=== PATIENT | female | born 2000 ===

== ENCOUNTER 2024-01-15 09:31 | Emergency (ER) | payer OTHER, SELFPAY ==
[2024-01-15 09:53] VITALS: BP 106/78; PULSE 88; RESP 16; TEMP 36.8; O2SAT 98; BMI 22.2
--- NOTE | 2024-01-15 14:21 | ED_ITS ---
HPI - General Adult General Chief complaint: Skin/Abscess/Foreign Body Stated complaint: cyst inside mouth Time Seen by Provider: 01/15/24 13:54 Source: patient Mode of arrival: ambulatory Limitations: no limitations History of Present Illness ED Provider: Shanell DOYLE HPI narrative: This is a 23-year-old female presenting to the emergency department with complaints of bump to right lower lip for the past 8 months not going away not resolving or improving. Patient was seen by her dentist, she was told that she had to come here to be evaluated as this could possibly be a cancerous growth. Patient reports that the lump is bothering her because it is getting bigger. She reports she frequently bites on plastic bottle caps on that side and she has not sure if this could be contributing. Patient reports she has been having difficulty when seeing a dentist due to insurance reasons and that is why she decided to come in today. She has requesting a biopsy to see if there is cancer in that region. Patient denies history of cancer, patient smokes marijuana however no tobacco. Denies fevers, chills, night sweats, chest pain, shortness of breath, changes in voice or difficulty swallowing, nausea, vomiting, weight changes. Related Data Previous Rx's ?Medication ?Instructions ?Recorded naproxen 500 mg tablet 500 mg PO BID PRN pain #14 tabs 01/15/24 Allergies Allergy/AdvReac Type Severity Reaction Status Date / Time No Known Allergies Allergy Verified 01/15/24 09:56 Review of Systems Review of Systems: Yes all other systems are reviewed and are negative PMFSH Past Medical History Attestation statement: The following information was validated with the patient. Source: old records reviewed and nursing notes reviewed Social History Social History Advance Directives: No Physical Exam ED Vital Signs: Vital Signs - 24 hr 01/15/24 09:53 Temperature 98.3 F Pulse Rate 88 Respiratory Rate 16 Blood Pressure 106/78 Pulse Oximetry 98 Oxygen Delivery Method Room Air BMI result Body Mass Index 22.2 vss Appearance: Alert.? Oriented X3.? No acute distress.? Head: Normocephalic, atraumatic, no step-offs or deformities Eyes: Pupils equal, round and reactive to light.? ENT: Pharynx normal.?+ firm area on righ lower lip about 4mm in diameter w/o fluctuance not tender to palpation. No errythema or dc. Neck: Normal inspection.? Neck supple.? CVS: Normal heart rate and rhythm.? Pulses normal.? Respiratory: No respiratory distress.? Breath sounds normal.? Abdomen: Soft and nontender.? Skin: Skin warm and dry.? Normal skin color.? Normal skin turgor.? Extremities: No lower extremity edema.? No calf ttp. 5/5 strength to bilateral upper and lower extremities Neuro: Oriented X 3.? No motor deficit.? No sensory deficit. CN 2-12 intact Course Reevaluation(s) Reevaluation #1: Educated patient on diagnosis and treatment plan, answered all question, patient verbalizes understanding. At this time patient will be discharged home, advised to return with new or worsening symptoms. Educated on worrisome signs and s ymptoms and when to return. At this time I feel comfortable discharge home. Time: 14:40 Medical Decision Making Medical Decision Making [facility] Narrative: [age]-year-old female presents with lump on right lower lip ongoing for the past 8 months. Would like an excisional biopsy PE- ?+ firm area on righ lower lip about 4mm in diameter w/o fluctuance not tender to palpation. No errythema or dc. History and physical exam concerning for traumatic fibroma of the mouth versus malignant mass versus trauma to lip. Unlikely abscess, no signs of necrotizing infection or Kirk's. No signs of airway compromise or respiratory distress Plan will discharge with naproxen for pain, will give her information for [facility] for dental follow-up. Differential Diagnosis Differential Diagnoses: The differential diagnosis associated with the presentation includes History and physical exam concerning for traumatic fibroma of the mouth versus malignant mass versus trauma to lip. Unlikely abscess, no signs of necrotizing infection or Kirk's. No signs of airway compromise or respiratory distress Admission/Observation Consideration of admission/observation: Escalation of care including admission/observation considered unlikey Prescription Management I considered prescription management with: Pain Medication Discharge Plan Discharge Clinical Impression: Lip mass, Fibroma of mouth Patient Disposition: Home, Self-Care Additional Instructions: Take your medications as prescribed. If you were prescribed antibiotics today, it is important that you take your medication to their entirety, do not skip any doses, do not finish them early. Follow-up with your primary care provider this week. Return to the emergency department with new or worsening symptoms. Such as fevers, chills, chest pain, shortness of breath, nausea, vomiting, dizziness, headache, vision changes, lethargy In case of emergency call 911 Follow-up with a dentist. [facility] CALL TODAY! [address] [id number] Prescriptions: New naproxen 500 mg tablet 500 mg PO BID PRN (Reason: pain) Qty: 14 0RF Rx Instructions: Take with food Print Language: [place]
--- NOTE | 2024-01-15 14:27 | PC.NURSE ---
patient a&ox3, vss, pt to discharge home with f/u to dentist, upon signing dc papers, pt is asking to speak with provider before leaving as she wants to know what pain medications will be called into the pharmacy.
[2024-01-15 14:47] VITALS: BP 108/72; PULSE 80; RESP 18; TEMP 36.7; O2SAT 98
== END 2024-01-15 14:48 | disposition home or self-care (01) ==
PROVIDERS: Emergency Provider Emergency Medicine
DX: K13.0 Diseases of lips (principal); K13.79 Other lesions of oral mucosa; F12.90 Cannabis use, unspecified, uncomplicated
CPT/HCPCS: 99282; 99283